=== PATIENT | female | born 1985 | race Caucasian/White ===

== ENCOUNTER 2019-08-08 08:33 | Emergency (ER) | payer MEDICAID ==
[~2019-08-08] VITALS: Ht 157.5 cm; Wt 91.0 kg
[2019-08-08] MEDS ORDERED: SODIUM CHLORIDE 0.9% 1,000 ML IV ONE (08:50)
[2019-08-08] MEDS ORDERED: KETOROLAC 30MG/ML VIAL IV STA (08:50)
[2019-08-08] MEDS ORDERED: FLUTICASONE PROPIONATE 50MCG/SPRAY BOTTLE BOTHNSTRLS SCH (09:00)
[2019-08-08] MEDS ORDERED: METOCLOPRAMIDE HCL 10MG/2ML VIAL IV ONE (09:00)
[2019-08-08 13:48] VITALS: BP 122/68
== END 2019-08-08 13:55 | disposition home or self-care (01) ==
LOC: ER 08:33
DX: R51 Headache (principal)
CPT/HCPCS: 96361; 96374; 96375; 99283; J1885; J2765; J7030

== ENCOUNTER 2021-07-16 11:04 | Emergency (ER) | payer MEDICAID ==
[~2021-07-16] VITALS: Ht 157.5 cm; Wt 86.0 kg
[2021-07-16 11:08] VITALS: BP 95/43
== END 2021-07-16 14:23 | disposition left against medical advice (07) ==
LOC: ER 11:04
DX: Z53.21 Procedure and treatment not carried out due to patient leaving prior to being seen by health care provider (principal)
CPT/HCPCS: 93005

== ENCOUNTER 2022-08-05 17:26 | Emergency (ER) | payer MEDICAID ==
[~2022-08-05] VITALS: Ht 157.5 cm; Wt 88.0 kg
[2022-08-05 17:34] VITALS: BP 116/71
[2022-08-05] MEDS ORDERED: ZINC113C10 TP (20:03)
[2022-08-05] MEDS ORDERED: CLOT15CR27 TP (20:03)
== END 2022-08-05 20:03 | disposition home or self-care (01) ==
LOC: ER 17:26
DX: L30.4 Erythema intertrigo (principal)
CPT/HCPCS: 81025; 99282

== ENCOUNTER 2023-06-15 13:32 | Emergency (ER) | payer MEDICAID ==
[~2023-06-15] VITALS: Ht 162.6 cm; Wt 76.0 kg
[~2023-06-15 13:32] MED LIST: CLOT15CR27 TP; ZINC113C10 TP
[2023-06-15 13:38] VITALS: TEMP 98.8; O2SAT 100
[2023-06-15 14:15] VITALS: BP 138/80; PULSE 96; RESP 18
[2023-06-15] MEDS ORDERED: IBUPROFEN 600MG TABLET PO ONE (14:15)
[2023-06-15] MEDS ORDERED: IBUP-2029 MT (15:11)
== END 2023-06-15 16:04 | disposition home or self-care (01) ==
LOC: ER 14:00
DX: S93.401A Sprain of unspecified ligament of right ankle, initial encounter (principal); X58.XXXA Exposure to other specified factors, initial encounter; Y93.89 Activity, other specified; Y92.89 Other specified places as the place of occurrence of the external cause; Y99.8 Other external cause status
CPT/HCPCS: 73610; 99283

== ENCOUNTER 2024-01-24 04:49 | Emergency (ER) | payer MEDICAID ==
[~2024-01-24] VITALS: Ht 162.6 cm; Wt 75.0 kg
[~2024-01-24 04:49] MED LIST changes: +IBUP-2029 MT
[2024-01-24 04:50] VITALS: TEMP 98.2; O2SAT 100
[2024-01-24 06:03] LABS: PROTHROMBIN TIME 11.3 sec (9.6-11.0)
[2024-01-24 06:12] LABS: BASOPHILS % 0.5 % (0.0-2.0); EOSINOPHILS % 0.2 % (0.0-5.0); HEMATOCRIT. 36.2 % (36.0-48.0); HEMOGLOBIN. 12.4 g/dL (12.0-16.0); LYMPHOCYTES % 21.1 % (20.0-50.0); MEAN CORPUSCULAR HEMOGLOBIN 32.7 pg (28.0-32.0); MEAN CORPUSCULAR HGB CONC 34.4 g/dL (31.0-37.0); MEAN CORPUSCULAR VOLUME 94.9 fL (81.0-99.0); NEUTROPHILS % 73.2 % (40.0-76.0); PLATELET 286 x1000/uL (130-400); RED BLOOD CELL COUNT 3.81 mill/uL (4.2-5.4); RED CELL DISTRIBUTION WIDTH 13.4 % (11.6-14.6); WHITE BLOOD COUNT 13.3 x1000/uL (4.5-11.0)
[2024-01-24 06:13] LABS: ALANINE AMINOTRANSFERASE 8 IU/L (10-49); ALBUMIN 4.7 g/dL (3.2-4.8); ASPARTATE AMINOTRANSFERASE 15 IU/L (<34); BILIRUBIN TOTAL 0.4 mg/dL (0.1-1.0); CARBON DIOXIDE 25 mEq/L (21-32); CHLORIDE 105 mEq/L (98-107); CREATININE 0.5 mg/dL (0.6-1.0); GLUCOSE 99 mg/dL (70-105); POTASSIUM 3.6 mEq/L (3.5-5.1); PROTEIN TOTAL 7.1 g/dL (6.0-8.3); SODIUM 137 mEq/L (136-145); UREA NITROGEN BLOOD 12 mg/dL (9-23)
[2024-01-24 06:39] LABS: HCG SCREEN NEGATIVE
[2024-01-24 06:44] LABS: ETHANOL BLOOD < 10 mg/dL (<10)
[2024-01-24 06:59] LABS: CLARITY URINE CLEAR (CLEAR); COLOR URINE YELLOW (YELLOW); GLUCOSE URINE NEGATIVE (NEGATIVE); KETONES URINE TRACE (NEGATIVE); LEUKOCYTE ESTERASE URINE NEGATIVE (NEGATIVE); NITRITE URINE NEGATIVE (NEGATIVE); OCCULT BLOOD URINE 2+ (NEGATIVE); PH URINE 5.5 (4.5-8.0); PROTEIN URINE TRACE (NEGATIVE); SPECIFIC GRAVITY URINE 1.026 (1.005-1.030)
[2024-01-24 07:15] LABS: BACTERIA URINE TRACE; RBC URINE 0-2 /hpf (0-2); SQUAMOUS EPITHELIAL CELL URINE NONE SEEN /lpf (RARE/1+); WBC URINE NONE SEEN /hpf (0-2)
[2024-01-24] MEDS: ONDANSETRON HCL 4MG/2ML INJ IV SCH (07:45)
[2024-01-24] MEDS: SODIUM CHLORIDE 0.9% 1,000 ML IV ONE (07:45)
[2024-01-24] MEDS: ONDANSETRON HCL 4MG/2ML INJ IV STA (07:45)
[2024-01-24] MEDS: KETOROLAC 30MG/ML VIAL IV STA (07:45)
[2024-01-24] MEDS: KETOROLAC 30MG/ML VIAL IV SCH (07:45)
[2024-01-24] MEDS ORDERED: ONDA4TAB11 PO (08:57)
[2024-01-24] MEDS ORDERED: DICY20TA2 MT (08:57)
[2024-01-24] MEDS ORDERED: DICYCLOMINE HCL 20MG TABLET PO SCH (09:00)
[2024-01-24] MEDS: DICYCLOMINE HCL 10MG CAPSULE PO SCH (09:53)
[2024-01-24 09:54] VITALS: BP 100/56; PULSE 89; RESP 17
== END 2024-01-24 09:58 | disposition home or self-care (01) ==
LOC: ER 04:49
DX: F14.10 Cocaine abuse, uncomplicated (principal); R11.2 Nausea with vomiting, unspecified; F12.10 Cannabis abuse, uncomplicated
CPT/HCPCS: 80053; 81003; 80320; 84703; 83690; 85025; 85610; 36415; 93005; 96361; 96374; 96375; 99284; J1885; J2405; J7030; Z7610 ×4; G0480

== ENCOUNTER 2024-06-07 16:10 | Emergency (ER) | payer MEDICAID ==
[~2024-06-07] VITALS: Ht 157.5 cm; Wt 75.0 kg
[~2024-06-07 16:10] MED LIST changes: +DICY20TA2 MT; +ONDA4TAB11 PO
[2024-06-07 16:13] VITALS: BP 105/62; PULSE 94; RESP 20; TEMP 98.6; O2SAT 99
== END 2024-06-07 18:38 | disposition left against medical advice (07) ==
LOC: ER 16:10
DX: R10.84 Generalized abdominal pain (principal); Z53.21 Procedure and treatment not carried out due to patient leaving prior to being seen by health care provider